=== PATIENT | male | born 1945 | race Caucasian/White ===

== ENCOUNTER → 2016-03-10 | Outpatient (CLI) | payer OTHER, MEDICARE ==
--- NOTE | 2016-03-10 13:21 | DX ---
Chest, Two Views 1031 hours History: Cough ,R 05. Comparison: June 2012. Findings: Cardiac silhouette is within normal range. No pneumonia, congestive heart failure, pleura l effusion, or pneumothorax. Median sternotomy wires consistent with previous coronary artery bypass. Degenerative lumbar spine with mild midthoracic compression deformities similar to previous study. M ediastinal clips. Bilateral mild peribronchial thickening. Impression: 1. Bronchitis. 2. No definite pneumonia. 3. Prior coronary artery bypass.
== END ==
LOC: CIMAGING 10:25
PROVIDERS: ATTEND Family Medicine
DX: J40 Bronchitis, not specified as acute or chronic (principal)
CPT/HCPCS: 71020-PO

== ENCOUNTER 2017-02-09 09:37 | Day surgery (SDC) | payer OTHER, MEDICARE ==
[2017-02-09] MEDS ORDERED: LR 1,000 ML IV ONE (10:08)
[2017-02-09 10:53] VITALS: RESP 16
[2017-02-09] MEDS ORDERED: BOTULINUM TOXIN TYPE A 100 UNIT VIAL MISC ONE (11:00)
[2017-02-09] MEDS ORDERED: LIDOCAINE 2% JELLY 5 ML TUBE ONE (11:09)
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
--- NOTE | 2017-02-09 11:15 | PDGENHP ---
History & Physical Chief Complaint: anal pain, cc screen History of Present Illness: months of anal pain thought to be anal fissure Pertinent Past, Social, Family History: no tobacco, rare alcohol,fh no cc Relevant Physical Exam: A+Ox3. CTA. S1S2,RRR. +BS, soft nt Cardiorespiratory Assessment: class 2
[2017-02-09] MEDS ORDERED: PROPOFOL/EMULSION 500 MG/50 ML BOTTLE IV ONE (11:17)
[2017-02-09] MEDS ORDERED: HYDROCODONE/APAP 5/325 TAB PO PRN (11:24)
[2017-02-09] MEDS ORDERED: LR 500 ML IV PRN (11:24)
[2017-02-09] MEDS ORDERED: ONDANSETRON 4 MG/2 ML VIAL IVP PRN (11:24)
[2017-02-09] MEDS ORDERED: NALOXONE HCL 0.4 MG/ML INJ IVP PRN (11:24)
--- NOTE | 2017-02-09 11:53 | POSTOPPROG ---
Post Op Note Date of Operation: 02/09/17 Surgeon: Alex Pickens Anesthesiologist: Alex Neves MD Anesthesia: Other (Specify) (IV general) Pre-op Diagnosis: anal fissure, cc screen Post-op Diagnosis: anal fissue s/p BOTOX injection o/w nml colonoscopy Indication: screening, anal fissure Procedure: colon with BOTOX injection Findings: nml colocoscopy, anal fissure, hemorrhoids, enlarged anal papilla Inf/Abcess present in the surg proc area at time of surgery?: No EBL: Minimal (few ml from injection) Total fluids administered: 300 ml LR Complications: none immediate
--- NOTE | 2017-02-09 11:57 | GIREPORT ---
[facility] Surgical Services - Endoscopy Department Patient Name: Ej Sewell Procedure Date: 02/09/2017 11:22 AM Patient Type: Outpatient Attending MD/ ER Physician: Jamal Ayala Procedure: Colonoscopy Indications: Screening for colorectal malignant neoplasm Providers: Aman Pickens MD Medicines: Total IV Anesthesia (TIVA) = IV general Complications: No immediate complications. Estimated blood loss: Minimal. Description of Procedure: After obtaining informed consent, the scope was passed under direct vis ion. Throughout the procedure, the patient's blood pressure, pulse, and oxyg en saturations were monitored continuously. The was introduced through the anus and advanced to the terminal ileum, with identification of the appendic eal orifice and IC valve. The colonoscopy was performed without difficulty. The patient tolerated the procedure well. The quality of the bowel preparat ion was good. Findings: The digital rectal exam findings include anal fissure. The terminal ileum appeared normal. The sigmoid colon, descending colon, splenic flexure, transverse colon, hepatic flexure, ascending colon and cecum appeared normal. Non-bleeding internal hemorrhoids were found during retroflexion. Anal papilla(e) were hypertrophied. A anal fissure was found in the anal canal. Area was successfully injec terrence with 100 units botulinum toxin. The exam was otherwise without abnormality. Estimated Blood Loss: Estimated blood loss was minimal. Post Op Diagnosis: - Anal fissure found on digital rectal exam. - The examined portion of the ileum was normal. - The sigmoid colon, descending colon, splenic flexure, transverse colo n, hepatic flexure, ascending colon and cecum are normal. - Non-bleeding internal hemorrhoids. - Anal papilla(e) were hypertrophied. - Anal fissure. - The examination was otherwise normal. - No specimens collected. Recommendation: - Resume previous diet. - Patient has a contact number available for emergencies. The signs and symptoms of potential delayed complications were discussed with the pat ient. Return to normal activities tomorrow. Written discharge instructions we re provided to the patient. - Continue present medications. - If symptoms continue will order imaging study of rectum/anus and also ask him to see a surgeon again. - Discharge patient to home (ambulatory). - Return to primary care physician as previously scheduled. - Return to endoscopist PRN. - Thank you for allowing me to help in your patient's care. Do not hesi azar to call with any questions. Attending Participation: I personally performed the entire procedure. Celio Newton M.D Aman Pickens MD 02/09/2017 11:56:58 AM This report has been signed electronicallyMathenorm Pickens MD Number of Addenda: 0 Note Initiated On: 02/09/2017 11:22 AM Total Procedure Duration Time 0 hours 23 minutes 45 seconds [email or web address]
[2017-02-09] MEDS ORDERED: fentaNYL 100 MCG/2 ML INJ ONE (12:12)
[2017-02-09] MEDS: fentaNYL 100 MCG/2 ML INJ IVP PRN ×2 (12:13→12:20)
[2017-02-09] MEDS ORDERED: IBUPROFEN 600 MG TAB PO ONE (12:35)
--- NOTE | 2017-02-09 12:36 | POSTANESTH ---
Post Anesthetic Evaluation Cardiovascular Status: Normal, Stable, Similar to Pre-Op Cond Respiratory Status: Normal, Stable, Similar to Pre-op Cond. Level of Consciousness/Mental Status: Can Participate in Eval, Alert and Oriented Pain Control: Adequate, Prn Tx Ordered Nausea/Vomiting Control: Adequate, Prn Tx Ordered Complications Possibly Related to Anesthesia: None Noted
[2017-02-09] MEDS ORDERED: IBUPROFEN 200 MG TAB PO ONE (12:37)
[2017-02-09 13:31] VITALS: TEMP 97.3; O2SAT 96
[2017-02-09 13:36] VITALS: BP 143/75; PULSE 55
== END 2017-02-09 13:35 | disposition home or self-care (01) ==
LOC: FSGY 09:37
PROVIDERS: ATTEND Internal Medicine Gastroenterology
PROC: 0DJD8ZZ Inspection of Lower Intestinal Tract, Via Natural or Artificial Opening Endoscopic (ICD-10-PCS; principal; 2017-02-09 11:00)
DX: K60.2 Anal fissure, unspecified (principal); K64.8 Other hemorrhoids; R00.2 Palpitations; I25.10 Atherosclerotic heart disease of native coronary artery without angina pectoris; E78.5 Hyperlipidemia, unspecified; Z95.1 Presence of aortocoronary bypass graft
CPT/HCPCS: J0585; J2704; J3010

== ENCOUNTER 2017-06-04 07:34 | Day surgery (SDC) | payer OTHER, MEDICARE ==
[2017-06-04] MEDS ORDERED: ASPIRIN EC 325 MG TAB PO ONE ×2 (07:35→08:00)
[2017-06-04] MEDS ORDERED: FAMOTIDINE 20 MG TAB PO ONE (07:35)
[2017-06-04] MEDS ORDERED: NS 1,000 ML IV ONE (07:35)
[2017-06-04] MEDS ORDERED: diphenhydrAMINE 25 MG CAP PO ONE ×2 (07:35→07:59)
[2017-06-04] MEDS ORDERED: DIAZEPAM 5 MG TAB PO ONE (07:35)
--- NOTE | 2017-06-04 07:56 | CPEKG ---
Heart Rate: 59 RR Interval: 1017 P-R Interval: 200 QRSD Interval: 96 QT Interval: 444 QTC Interval: 440 P [place]: 0 QRS [place]: 36 T Wave [place]: 131 EKG Severity - ABNORMAL ECG - EKG Impression: SINUS RHYTHM EKG Impression: MULTIPLE VENTRICULAR PREMATURE COMPLEXES EKG Impression: PROBABLE INFERIOR INFARCT, AGE INDETERMINATE Electronically Signed By: Tae Ruiz 04-Jun-2017 09:34:12
[2017-06-04] MEDS ORDERED: FAMOTIDINE 20 MG TAB ONE (08:00)
[2017-06-04] MEDS ORDERED: DIAZEPAM 5 MG TAB ONE (08:00)
[2017-06-04 08:13] LABS: PLATELET COUNT 159 10^3/uL (150-400)
[2017-06-04 08:21] LABS: INR 0.93 (0.83-1.16); PROTIME(PATIENT) 12.7 SEC (12.0-15.0)
[2017-06-04] MEDS ORDERED: IOPAMIDOL (ISOVUE-370) 150 ML BTL IV ONE ×2 (09:07→10:04)
[2017-06-04] MEDS ORDERED: LIDOCAINE 1% 300 MG/30 ML SDV ONE (09:07)
[2017-06-04] MEDS ORDERED: fentaNYL 100 MCG/2 ML INJ ONE ×2 (09:16→10:37)
[2017-06-04] MEDS ORDERED: MIDAZOLAM 2 MG/2 ML VIAL ONE (09:16)
--- NOTE | 2017-06-04 09:35 | PDHPUP ---
History & Physical Update H&P update statement: This history and physical update is based on an assessment of the patient which was completed after admission or registration (within 24 hours), but prior to the surgery/procedure. H&P update: H&P reviewed & patient examined, no change in patient's condition since H&P completed
--- NOTE | 2017-06-04 09:36 | PDPROPOC ---
Sedation Plan of Care Sedation Plan of Care: vital signs stable, mental status noted, patient educated of risks, benefits, alternatives, patient can tolerate sedation ASA Classification: ASA 2 Mallampati Score: Class 2 Mallampati Reference Image: Patient passed 3-3-2 rule?: Yes
[2017-06-04] MEDS ORDERED: ATROPINE SULFATE 1 MG/10 ML SYR IVP PRN (10:49)
[2017-06-04] MEDS ORDERED: OXYCODONE/APAP 5/325 TAB PO PRN (10:49)
[2017-06-04] MEDS ORDERED: HYDROCODONE/APAP 5/325 TAB PO PRN (10:49)
[2017-06-04] MEDS ORDERED: NITROGLYCERIN 0.4 MG BTL SL PRN (10:49)
[2017-06-04] MEDS ORDERED: ONDANSETRON 4 MG/2 ML VIAL IVP PRN (10:49)
--- NOTE | 2017-06-04 11:29 | PDDXCAT ---
Diagnostic Cath Note - . Date: 06/04/17 Logging Equipment Operator: Sher Indication: other (CAD with h/o 5-vessel CABG in 2013; bilateral arm pain as anginal equivalent; abnormal nuclear stress test.) - Procedure Access: right groin Procedure: left heart catheterization, coronary angiography, left ventriculogram , vein graft injection, SOLOMON injection, KIYA injection - Materials Left Heart Cath size: 5F Left Heart Cath materials: JL3.5, JL4.0, MAX, pigtail - Findings-Left Heart Catheterization LM: Normal. LAD: Mid-LAD with moderate to severe disease; dye density in the mid to distal LAD diluted by inflow from SOLOMON graft. LCX: Proximal 70%; mid 100%. RCA: Mid-RCA 100%. rSV) SVG to Principal Diagonal: widely patent; target vessel with mild irregularities. 2) Sequential SVG to OM-1 and OM-2: widely patent to OM-1; target vessel with mild irregularities; limb of SVG to OM-2 100% occluded. SOLOMON: 1) SOOLMON to LAD widely patent; target vessel with mild irregularities. 2) KIYA to RCA patent; target vessel with mild irregularities. LVEF: 40% Wall motion: Inferobasilar akinesis. Complications: None Estimated blood loss: <50ml Closure method: Angioseal Assessment: 1) Ischemic cardiomyopathy with moderately reduced LV systolic function. 2) [place] coronary artery disease as described above. 3) Four out of five bypass grafts patent as described above. Patient Problems: Problems Problem Status Onset CAD - Coronary arteriosclerosis Active
[2017-06-04 15:09] VITALS: BP 151/69; RESP 16; O2SAT 95
== END 2017-06-04 15:35 | disposition home or self-care (01) ==
LOC: FCATH 07:34
PROVIDERS: ATTEND Internal Medicine Interventional Cardiology
PROC: B2111ZZ Fluoroscopy of Multiple Coronary Arteries using Low Osmolar Contrast (ICD-10-PCS; principal; 2017-06-04)
PROC: B2121ZZ Fluoroscopy of Single Coronary Artery Bypass Graft using Low Osmolar Contrast (ICD-10-PCS; principal; 2017-06-04)
PROC: B2171ZZ Fluoroscopy of Right Internal Mammary Bypass Graft using Low Osmolar Contrast (ICD-10-PCS; principal; 2017-06-04)
PROC: B2151ZZ Fluoroscopy of Left Heart using Low Osmolar Contrast (ICD-10-PCS; principal; 2017-06-04)
PROC: B2181ZZ Fluoroscopy of Left Internal Mammary Bypass Graft using Low Osmolar Contrast (ICD-10-PCS; principal; 2017-06-04)
PROC: 4A023N7 Measurement of Cardiac Sampling and Pressure, Left Heart, Percutaneous Approach (ICD-10-PCS; principal; 2017-06-04)
DX: I25.119 Atherosclerotic heart disease of native coronary artery with unspecified angina pectoris (principal); I25.709 Atherosclerosis of coronary artery bypass graft(s), unspecified, with unspecified angina pectoris; I25.82 Chronic total occlusion of coronary artery; I11.0 Hypertensive heart disease with heart failure; I50.20 Unspecified systolic (congestive) heart failure; E78.5 Hyperlipidemia, unspecified; I25.2 Old myocardial infarction; I34.0 Nonrheumatic mitral (valve) insufficiency
CPT/HCPCS: C1760; J1644; J2250; J3010; Q9967

== ENCOUNTER → 2017-10-19 | Outpatient (CLI) | payer OTHER, MEDICARE ==
--- NOTE | 2017-10-22 11:07 | CPEEG ---
[f rep st] ELECTROENCEPHALOGRAM DATE OF STUDY: 10/19/2017 INTERPRETATION: Normal EEG during wakefulness and sleep. There were no potentially epileptogenic ab normalities present during the recording. REPORT: This EEG contains 10 Hz alpha activity to the posterior head regions. The background activi ty was normal and symmetric. There was no abnormal activation at rest or during photic stimulation o r hyperventilation. The patient became drowsy and fell asleep during the study. There was no abnorm al activation during drowsiness, sleep, or during times of arousal. /[id number]/MODL
== END ==
LOC: FCPNEURO 09:53
PROVIDERS: ATTEND Psychiatry & Neurology Neurology
DX: Z13.858 Encounter for screening for other nervous system disorders (principal); S06.6X9A Traumatic subarachnoid hemorrhage with loss of consciousness of unspecified duration, initial encounter